=== PATIENT | female | born 1955 | race Caucasian/White ===

== ENCOUNTER → 2020-09-29 15:44 | Outpatient (CLI) | payer MEDICARE, SELFPAY ==
--- NOTE | ~2020-09-29 | XR_ITS ---
EXAMINATION: XR chest 2V DATE: 09/29/2020 16:08 INDICATION: Shortness of breath TECHNIQUE: Frontal and lateral views of the chest are obtained COMPARISON: None available FINDINGS: The lungs are free of acute opacities. There is no pleural effusion or pneumothorax. The ca rdiomediastinal silhouette is normal. There is moderate thoracic spondylosis. IMPRESSION: 1. No acute cardiopulmonary abnormality. Reviewed, dictated and finalized at location A.
== END ==
PROVIDERS: PCP Family Medicine Adolescent Medicine; Visit Provider Family Medicine Adolescent Medicine
DX: R06.00 Dyspnea, unspecified (principal)
CPT/HCPCS: 71046

== ENCOUNTER 2021-05-04 14:58 | Outpatient (CLI) | payer OTHER, SELFPAY ==
--- NOTE | 2021-05-05 13:39 | WPDPFTINT ---
PFT Procedure Performed PFT Procedure Performed Plethysmography (Lung Vol) Diffusing Cap (DLCO) Flow Vol Loop Spirometry w/o Bronchodil PFT Interpretation Lung volumes were measured with the body plethysmography method. Lung volumes are unremarkable. Spirometry shows normal expiratory flow rates and a normal FEV1 to FVC ratio of 80%. No post bronchodilator study was carried out. Lung diffusion capacity is within the normal range at 89% predicted. The flow volume loop is unremarkable. Impression: Lung volumes, spirometry, and lung diffusion capacity all within the normal range.
== END 2021-05-04 14:59 | disposition home or self-care (01) ==
PROVIDERS: PCP Family Medicine Adolescent Medicine; Visit Provider Family Medicine Adolescent Medicine
DX: R06.09 Other forms of dyspnea (principal)
CPT/HCPCS: 94375; 94726; 94729

== ENCOUNTER 2021-06-15 01:00 | Day surgery (SDC) | payer OTHER, SELFPAY ==
[2021-06-14 12:14] VITALS: BMI 29.0
[2021-06-15] VITALS (10 sets, daily range): BP systolic 119–156; BP diastolic 58–93; PULSE 38–79; RESP 12–18; TEMP 36–36.6; O2SAT 95–100; BMI 29.7
--- NOTE | ~2021-06-15 | XR_ITS ---
EXAMINATION: XR chest 2V 06/16/2021 08:44 INDICATION: Post pacemaker insertion PROCEDURE: 2 view chest COMPARISON: Comparison to multiple prior studies sequentially, with oldest reviewed study dated 11/2020. FINDINGS: The lungs are clear. Sequential pacemaker leads in expected position, unchanged. The cardio mediastinal silhouette is within normal limits. There are no pleural effusions. There is no pneumot horax suspected. IMPRESSION: 1: NO ACUTE CARDIOPULMONARY DISEASE. Reviewed, dictated and finalized at location A. E CLOTH FINISHER
--- NOTE | ~2021-06-15 | XR_ITS ---
XR chest 1V portable 06/15/2021 12:54 Indication: Pacemaker insertion Procedure: AP portable chest Comparison: 09/29/2020 Findings: Heart size normal. Shallow inspiration. No focal air space disease, pulmonary edema, pleura l effusion or suspected pneumothorax. Sequential pacemaker leads in the right atrium and right ventri angie respectively. No pneumothorax. No acute osseous abnormality. Impression: 1: No acute cardiopulmonary disease. Reviewed, dictated and finalized at location A. D ASSISTANT Impression: 1: No acute cardiopulmonary disease.
[2021-06-15 07:33] LABS: Anion Gap 2 mmol/L (8-16); Blood Urea Nitrogen 11 mg/dL (7-17); Calcium 9.5 mg/dL (8.4-10.2); Carbon Dioxide 31 mmol/L (22-30); Chloride 105 mmol/L (98-107); Estimated CRCL calculation 52 ml/min; Estimated Glomerular Filt Rate 50; Glucose 91 mg/dL (65-110); Potassium 3.8 mmol/L (3.4-5.0); Sodium 138 mmol/L (137-145)
[2021-06-15 07:35] LABS: INR 0.9; Prothrombin Time 12.5 Seconds (11.1-14.7)
[2021-06-15 07:42] LABS: Basophils Absolute Auto 0.1 K/mm3 (0.0-0.1); Basophils Percent Auto 0.7 % (0.2-1.2); Eosinophils Absolute Auto 0.2 K/mm3 (0-0.3); Eosinophils Percent Auto 1.9 % (0-4.4); Hematocrit 47.6 % (37.0-47.0); Hemoglobin 15.4 g/dL (12.0-15.0); Immature Granulocyte Absolute 0.03 K/mm3 (0.00-0.031); Immature Granulocyte Percent A 0.3 % (0-0.5); Lymphocytes Absolute Auto 2.87 K/mm3 (0.9-3.2); Lymphocytes Percent Auto 27.5 % (18.3-44.2); Mean Corpuscular HGB Conc 32.4 g/dl (32-36); Mean Corpuscular Hemoglobin 30.3 pg (26-34); Mean Corpuscular Volume 93.5 fl (80-100); Mean Platelet Volume 10.2 fl (7.4-10.4); Monocytes Absolute Auto 0.9 K/mm3 (0.1-0.6); Monocytes Percent Auto 8.1 % (2.6-8.5); Neutrophils Absolute Auto 6.4 K/mm3 (1.3-6.7); Neutrophils Percent Auto 61.5 % (45.5-73.1); Platelet Count Result 269 k/mm3 (150-375); Red Blood Count 5.09 M/mm3 (4.2-5.4); Red Cell Distribution Width 13.4 % (11.5-14.5); White Blood Count 10.5 K/mm3 (4.5-10.0)
--- NOTE | 2021-06-15 08:53 | PM.IMHP ---
H&P: HPI History of Present Illness Date/Time: 06/15/21 08:53 Chief Complaint: Symptomatic second-degree AV block Narrative: Enriqueta Orellana is a 65-year-old female with symptomatic second-degree AV block who is here for implantation of a permanent dual-chamber pacemaker. The patient has been having PRATT, dizziness and near syncope. She was seen by Dr. Reece recently found that she was in 2-1 AV block with heart rate in the 30s. She is not on any AV maria e blocking agents. She has normal left ventricular function with an ejection fraction is 75% and no significant valve disease. No known coronary disease. Father had a pacemaker. She is feeling well today with no fevers or infections. She is right-handed. She has been NPO. No allergies. No clavicular fracture. Review of Systems Constitutional: Constitutional: Reports lethargy and Reports weakness Eyes: Eyes: Reports no additional eye complaints ENT: Denies epistaxis Cardiovascular: Cardiovascular: Denies chest pain, Denies leg edema and Denies palpitations Respiratory: Respiratory: Reports dyspnea and Reports dyspnea on exertion Gastrointestinal: Gastrointestinal: Denies abdominal pain Genitourinary: Genitourinary: Denies hematuria Musculoskeletal: Musculoskeletal: Reports no additional musculoskeletal complaints Integumentary/Breasts: Skin/Breast: Denies rash Neurologic: Reports vertigo (Dizziness and near-syncope) Psychiatric: Psychiatric: Reports no additional psychiatric complaints [facility] Past Medical History Medical History (Updated 06/15/21 @ 08:58 by Jackie Denton MD) GERD (gastroesophageal reflux disease) Second degree AV block Surgical History Surgical History (Updated 06/15/21 @ 08:56 by Jackie Denton MD) H/O knee surgery History of Family History Family History (Updated 06/15/21 @ 08:56 by Jackie Denton MD) Father Pacemaker Marfan syndrome Social History Social History (Updated 06/15/21 @ 08:56 by Jackie Denton MD) Social History: Smoking status: Never smoker Living arrangements: with family Meds Home Medications and Allergies Home Medications Medication Instructions Recorded Confirmed Type pantoprazole 40 mg PO DAILY 06/14/21 06/14/21 History Allergies Allergy/AdvReac Type Severity Reaction Status Date / Time No Known Allergies Allergy Verified 06/14/21 12:14 Vital Signs Vital Signs - 24 hr 06/15/21 07:20 Temperature 97.4 F L Pulse Rate 38 L Respiratory Rate 12 Blood Pressure 153/82 H Pulse Oximetry 100 Exam Narrative: Pleasant middle-aged female complaining but no distress Const: General: comfortable and no acute distress HENMT: Mouth: Yes moist mucous membranes Eyes: EOM: EOMs intact bilaterally Neck: Neck: supple Resp: Effort & Inspection: normal respiratory effort Auscultation: clear to auscultation bilaterally Cardio: Rate: regular rate Rhythm: regular rhythm Heart sounds: no murmurs GI: GI Palp: Yes Soft to palpation and No Tenderness to palpation present (GI) Skin: General skin exam: normal color and no rashes or lesions noted Other: Skin over left prepectoral area is free of erythema or rash Neuro: Cognition (Neuro): normal cognition Speech: normal speech Extrem: General: no edema Psych: Mental Status: mental status grossly normal Affect: normal affect H&P: Results Labs Labs: Short CBC 06/15/21 Range/Units 07:17 WBC 10.5 H (4.5-10.0) K/mm3 Hgb 15.4 H (12.0-15.0) g/dL Hct 47.6 H (37.0-47.0) % Plt Count 269 (150-375) k/mm3 [facility] 06/15/21 07:17 Sodium 138 Potassium 3.8 Chloride 105 Carbon Dioxide 31 H BUN 11 Creatinine 1.10 H Glucose 91 Calcium 9.5 Assessment and Plan Assessment and plan (1) Second degree AV block: Code(s): I44.1 - Atrioventricular block, second degree Status: Acute Assessment and Plan: Symptomatic second-degree AV b
--- NOTE | 2021-06-15 08:59 | WPDMODSED ---
Moderate Sedation Note-Pt Data Patient Data Diagnosis: Symptomatic second-degree AV block Present Complaint: The patient has been having PRATT, dizziness and near syncope. She was seen by Dr. Reece recently found that she was in 2-1 AV block with heart rate in the 30s. She is not on any AV maria e blocking agents. She has normal left ventricular function with an ejection fraction is 75% and no significant valve disease. No known coronary disease. Father had a pacemaker. She is feeling well today with no fevers or infections. She is right-handed. She has been NPO. No allergies. No clavicular fracture. Procedure to be performed/Plan: Conscious sedation venogram Implantation of a permanent dual-chamber transvenous pacemaker Allergies Allergy/AdvReac Type Severity Reaction Status Date / Time No Known Allergies Allergy Verified 06/14/21 12:14 Home Medications Medication Instructions Recorded Confirmed Type pantoprazole 40 mg PO DAILY 06/14/21 06/14/21 History Sedation/Anesthesia: No previous sedation/anesthesia problems (including family history). [facility] Past Medical History Medical History (Updated 06/15/21 @ 08:58 by Jackie Denton MD) GERD (gastroesophageal reflux disease) Second degree AV block Surgical History Surgical History (Updated 06/15/21 @ 08:56 by Jackie Denton MD) H/O knee surgery History of Family History Family History (Updated 06/15/21 @ 08:56 by Jackie Denton MD) Father Pacemaker Marfan syndrome Social History Social History (Updated 06/15/21 @ 08:56 by Jackie Denton MD) Social History: Smoking status: Never smoker Living arrangements: with family Mod Sed Physical Exam Physical Exam Pre Procedural Exam: Normal: Appearance, Eyes, Ears, Nose, Neck, Throat, Airway, Lungs, Heart Size, Heart Rate, Heart Rhythm, Neuro Exam, Abdomen, Extremities and Skin Hours since solid foods: 12 Hours since liquid intake: 12 Mallampati Classification: class III Internal Medicine - PN: Obj Da Vital Signs Vital Signs: Vital Signs - 24 hr 06/15/21 07:20 Temperature 97.4 F L Pulse Rate 38 L Respiratory Rate 12 Blood Pressure 153/82 H Pulse Oximetry 100 Labs CBC & Chem 7: 06/15/21 07:17 06/15/21 07:17 Labs: Laboratory Results - last 24 hr 06/15/21 06/15/21 06/15/21 07:17 07:17 07:17 WBC 10.5 H RBC 5.09 Hgb 15.4 H Hct 47.6 H MCV 93.5 MCH 30.3 MCHC 32.4 RDW 13.4 Plt Count 269 MPV 10.2 Immature Gran % (Auto) 0.3 Neut % (Auto) 61.5 Lymph % (Auto) 27.5 Falls % (Auto) 8.1 Eos % (Auto) 1.9 Baso % (Auto) 0.7 Lymph # (Auto) 2.87 Falls # (Auto) 0.9 H Eos # (Auto) 0.2 Baso # (Auto) 0.1 Abs Immat Gran (auto) 0.03 Absolute Neuts (auto) 6.4 Absolute Nucleated RBC 0.0 Nucleated RBC % 0.0 PT 12.5 INR 0.9 Sodium 138 Potassium 3.8 Chloride 105 Carbon Dioxide 31 H Anion Gap 2 L BUN 11 Creatinine 1.10 H Estim Creat Clear Calc 52 Estimated GFR 50 L Glucose 91 Calcium 9.5 ASA Classification/Sedation ASA Classification/Sedation ASA Class: III Emergent: No Risks: Risks, benefits and alternatives explained and patient/family accepted plan for sedation. Patient re-evaluated immediately prior to sedation. Patient recalls that when she had apparently general anesthesia? With her C-sections it did not work well, and it took a long time for her to ?come out of it. ?
--- NOTE | 2021-06-15 11:12 | ECG_ITS ---
Measurements Intervals [place] Rate: 61 P: 242 CO: 247 QRS: -76 QRSD: 162 T: 85 QT: 506 QTc: 511 Interpretive Statements ELECTRONIC ATRIAL PACEMAKER ELECTRONIC VENTRICULAR PACEMAKER NO FURTHER INTERPRETATION IS POSSIBLE ATYPICAL ECG Electronically Signed On 06-15-2021 14:07:55 CARBURIZER by Korey Esquivel D.O.
--- NOTE | 2021-06-15 11:15 | PM.OP ---
Procedure Note - Brief Procedure Note - Brief Date of procedure: 06/15/21 Pre-op diagnosis: Symptomatic AV Block Status post dual chamber Biotronik pacemaker Post-op diagnosis: same Procedure performed: conscious sedation Venogram Placement of permanent dual-chamber pacemaker Description of procedure: uneventful placement of dual-chamber Biotronik pacemaker Anesthesia: local ( with conscious sedation) Surgeon: Jackie Denton MD Complications: No immediate complications Condition: stable Disposition: observation
--- NOTE | 2021-06-15 11:16 | W.PM.PROC2 ---
Procedure Note - Detailed Date of Procedure 06/15/21 Pre-op Diagnosis Symptomatic AV Block Post-op Diagnosis other (Status post dual-chamber pacemaker) Procedure Performed PROCEDURE PERFORMED: Conscious sedation Venogram Placement of a permanent dual-chamber pacemaker Surgeon Jackie Denton MD Anesthesia local Indications symptomatic second-degree AV block Description of Procedure HISTORY: Enriqueta Orellana is a 65-year-old female with symptomatic second-degree AV block who is here for implantation of a permanent dual-chamber pacemaker. The patient has been having PRATT, dizziness and near syncope. She was seen by Dr. Reece recently found that she was in 2-1 AV block with heart rate in the 30s. She is not on any AV maria e blocking agents. She has normal left ventricular function with an ejection fraction is 75% and no significant valve disease. No known coronary disease. Father had a pacemaker. She is feeling well today with no fevers or infections. She is right-handed. She has been NPO. No allergies. No clavicular fracture. SITE: Left prepectoral area MEDICATIONS GIVEN IN LAP MACHINE TENDER: Ancef 1 gram IV piggyback UNDERLYING RHYTHM: Second-degree AV block, heart rate in the 30s CONSCIOUS SEDATION: Assessment: The patient has no history of anesthesia problems. The patient's oropharynx is clear. The patient was deemed to be a good candidate for conscious sedation. The patient had continuous hemodynamic monitoring during the procedure. Start time: 930 Completion time: 1107 Total conscious sedation time: 96 minutes Medications: Versed 4 mg IV push, fentanyl 150 mcg IV push Trained observer: Erica Ríos RN Outcome: The patient tolerated the procedure well with no complications. PROCEDURE: After informed consent , the patient was brought to the chemical lab supervisor and the left prepectoral area was prepped and draped in usual fashion . The patient received preop antibiotic and conscious sedation . The left prepectoral area was anesthetized with lidocaine . A venogram was performed showing the course of the left subclavian vein,which was patent, and following the anticipated course. Next a skin incision was made and carried down to the prepectoral fascia. Hemostasis was obtained using electrocautery . The pacer pocket was formed. The left subclavian vein was easily accessed with the micropuncture technique, and a J-tip guide wire was passed into the inferior vena cava under fluoroscopic guidance . The needle was withdrawn . A 2nd wire was introduced in an identical fashion. A 6 Cambodian Cambodian safety sheath was passed over the lateral wire, the wire withdrawn, and the right ventricular lead was passed into the inferior vena cava under fluoroscopic guidance . The lead was then prolapsed through the tricuspid valve and advanced into the right ventricular apex. I attempted to find a suitable position on the septum but was unable to get good thresholds so placed the lead in the apex.bbWhen suitable sensing and pacing thresholds were obtained, it was screwed into place. No extra cardiac stimulation was obtained using 10 volts. The sheath was withdrawn. Next, another 6 Cambodian safety sheath was passed over the more medial wire, the wire withdrawn, and the right atrial lead was passed into the inferior vena cava under fluoroscopic guidance. Right atrial lead was then pulled back to the level of the right atrium and manipulated into the right atrial appendage . When suitable sensing and pacing thresholds were obtained , it was screwed into place . No extra cardiac stimulation was obtained using 10 volts. The sheath was withdrawn. Both leads were secured to the prepectoral fascia using 2-0 silk over their respective sleeves. The pocket was cleansed with antibiotic containing solution . The RV lead impedance then increase to 2000, so the RV lead was repositioned with excellent pacing sensing and impedance. The pulse generator w
--- NOTE | 2021-06-15 11:59 | SUR.PHASEII ---
1130-pt returned to room post pacemaker. Aquacel dressing to left chest. 12-lead EKG done at bedside. Awaiting PCXR.
--- NOTE | 2021-06-15 13:07 | SUR.PHASEII ---
PCXR DONE, IMMOBILIZER PLACED ON PTS LEFT ARM
--- NOTE | 2021-06-15 14:49 | SUR.PHASEII ---
PT WILL STAY OVERNIGHT EXTENDED RECOVERY. PT WILL BE TRANSFERRED TO PACU. PHASE II DONE AT 1400.
[2021-06-15] MEDS: HYDROcodone/acetaminophen (*CRX) 5-325 MG TABLET 1 TAB PO ×2 (16:00→21:52)
--- NOTE | 2021-06-15 16:42 | OBADM ---
This patient, Enriqueta Orellana, admitted to the OB room 2 Medical Room 249 for observation. Patient/family oriented to hospital policies and general routines including ID bracelet, bed and alarms, visiting hours, pain management, procedures, bathroom and other care routines, personal items, smoking policy, room service/diet, and visiting hours. Patient/Family are encouraged to report perceived risks to care and to ask questions if they do not understand what they are told or what they should do.
[2021-06-16] VITALS: BP 127/66; PULSE 68; PULSE 74; RESP 14; TEMP 36.4; O2SAT 98
[2021-06-16] MEDS: HYDROcodone/acetaminophen (*CRX) 5-325 MG TABLET 1 TAB PO ×2 (03:55→10:58)
[2021-06-16 04:00] VITALS: BP 136/58; PULSE 67; RESP 12; TEMP 36.1; O2SAT 95
[2021-06-16 08:00] VITALS: PULSE 77
[2021-06-16 10:04] VITALS: BP 148/80; PULSE 72; RESP 14; TEMP 36.4; O2SAT 96
[2021-06-16 12:00] VITALS: PULSE 77
--- NOTE | 2021-06-16 22:43 | PM.DS ---
DS: Admitting Diagnosis Discharge Date 06/16/21 Admitting Diagnosis Symptomatic second-degree AV block, symptomatic bradycardia DS: Discharge Diagnosis Discharge Diagnosis (1) S/P cardiac pacemaker procedure: Code(s): Z95.0 - Presence of cardiac pacemaker Status: Acute Assessment and Plan: Enriqueta Orellana is a 65-year-old female with symptomatic second-degree AV block who is here for implantation of a permanent dual-chamber pacemaker. The patient has been having PRATT, dizziness and near syncope. She was seen by Dr. Reece recently found that she was in 2-1 AV block with heart rate in the 30s. She is not on any AV maria e blocking agents. She has normal left ventricular function with an ejection fraction is 75% and no significant valve disease. No known coronary disease. Father had a pacemaker. The patient underwent uneventful implantation of a permanent dual-chamber Biotronik pacemaker on 06/15/2021. She a appeared pacemaker dependent and was kept overnight. Chest x-ray showed good lead positioning and no pneumothorax. Interrogation of the device showed good sensing and pacing thresholds. The patient was discharged for office follow-up in 1 week and was given detailed instruction on activity and incision care. She was provided weeks prescription for cephalexin as well.. DS: Summary Hospital Course Hospital Course: See above Status at Discharge Functional status at discharge: independent ambulation Time Spent with Patient Time attestation: Total time spent providing and/or coordinating discharge services: > 35 minutes Time spent: Greater than 30 minutes Exam Const: General: comfortable and no acute distress Eyes: General: appearance normal, both eyes and all related structures Chest: Chest palpation & inspection: normal inspection of the chest Other: Aquacel dressing dry and intact, no surrounding ecchymosis or hematoma. Resp: Effort & Inspection: normal respiratory effort Cardio: Rate: regular rate Rhythm: regular rhythm Heart sounds: no murmurs GI: Inspection: normal to inspection and non-distended Skin: General skin exam: no rashes or lesions noted Neuro: General: patient oriented x3 Cognition (Neuro): normal cognition Speech: normal speech Extrem: General: no edema Psych: Appearance: grossly normal and well kempt Mental Status: mental status grossly normal DS: Data Data Completed and Pending Completed studies during hospitalization: Chest x-ray showed good lead placement and no pneumothorax. Procedures/Treatments: Status post dual chamber Biotronik pacemaker implant on 06/15/2021 Discharge Plan Discharge Patient Disposition: Home, Self-Care Discharge Instructions: [facility] [address] [place] [address] DISCHARGE INSTRUCTIONS - POST PACEMAKER Activity 1. No driving until you are seen in the office for your incision check. 2. No lifting, pushing or pulling more than 5 pounds with affected arm for 1 MONTH 3. No lifting affected arm above shoulder height for 1 MONTH 4. Wear immobilizer/sling only if you are unable to remember the above activity restrictions. Recommend that it be worn at night. 5. You may shower AFTER you are seen for incision check on 06/24/2021 but no tub baths, swimming pool or hot tub for 1MONTH Wound Care 1. Do not attempt to remove the Aquacel dressing. Leave dressing undisturbed until incision check at the office visit. Keep dressing dry. 2. When you ar
== END 2021-06-16 14:48 | disposition home or self-care (01) ==
LOC: ANHCATHLAB 06:56 → ANHSUROVER 14:58 → ANH2MED 16:37
PROVIDERS: PCP Family Medicine Adolescent Medicine; Visit Provider Internal Medicine Cardiovascular Disease
PROC: 0JH606Z Insertion of Pacemaker, Dual Chamber into Chest Subcutaneous Tissue and Fascia, Open Approach (ICD-10-PCS; CPT 33208; principal; 2021-06-15 08:30)
DX: I44.1 Atrioventricular block, second degree (principal); K21.9 Gastro-esophageal reflux disease without esophagitis
CPT/HCPCS: 33208; 36415; 71045; 71046; 80048; 85025; 85610; 93005; A9270; C1779; C1785; C1894; J0690; J2250; J3010; J7040

== ENCOUNTER 2023-12-17 13:05 | Emergency (ER) | payer MEDICARE, SELFPAY ==
--- NOTE | ~2023-12-17 | XR_ITS ---
EXAMINATION: XR chest 2V DATE: 12/17/2023 14:14 INDICATION: Cough. TECHNIQUE: Frontal and lateral views of the chest were obtained. COMPARISON: Chest 2 views 06/16/2021 FINDINGS: There is no pneumonia, pleural effusion, or pneumothorax. The heart size is normal. There i s a left chest wall pacer with leads in the right atrium and right ventricle. IMPRESSION: 1. No acute cardiopulmonary disease. Reviewed, dictated and finalized at location E.
[2023-12-17 13:08] VITALS: BP 136/97; PULSE 88; RESP 17; TEMP 36.6; O2SAT 98
[2023-12-17 13:11] VITALS: O2SAT 98
[2023-12-17 13:51] LABS: Strep Group A RT-PCR NOT DETECTED (Negative)
--- NOTE | 2023-12-17 14:17 | ED.GENADULT ---
HPI - General Adult General Chief complaint: Upper Respiratory Infection Stated complaint: ?strep throat Time Seen by Provider: 12/17/23 13:49 History of Present Illness HPI narrative: 68-year-old female presents to the emergency department for evaluation of sore throat. Patient states she has had some postnasal drip that may be worsening her sore throat. Patient states she has also had some minor fatigue which she attributed to possible allergies. Patient states she does not like to take decongestant medications because they tend to give her heart palpitations. Patient was willing to have a strep test but declined the COVID and chest x-ray Related Data Allergies Allergy/AdvReac Type Severity Reaction Status Date / Time No Known Allergies Allergy Verified 12/17/23 13:13 Review of Systems Review of Systems: All systems reviewed & are unremarkable except as noted in HPI and below PMFSH Past Medical History Medical History (Updated 12/17/23 @ 14:55 by Everton Rawls MD) GERD (gastroesophageal reflux disease) Second degree AV block Surgical History Surgical History (Updated 06/16/21 @ 22:44 by Jackie Malone MD) H/O knee surgery History of S/P cardiac pacemaker procedure Family History Family History (Updated 06/15/21 @ 08:56 by Jackie Malone MD) Father Pacemaker Marfan syndrome Social History Social History (Updated 06/15/21 @ 08:56 by Jackie Malone MD) Social History: Smoking status: Never smoker Living arrangements: with family Exam Narrative: APPEARANCE: Well appearing, no pain, no distress, well-nourished. HEAD: normocephalic, atraumatic. EYES: PERRLA/EOMI, conjunctivae clear. NOSE: Normal no drainage EARS:TMS clear with good light reflex. THROAT: Pharynx clear, no exudate. NECK: Supple. No adenopathy, no masses. RESPIRATORY: Airway patent, respirations nonlabored. Clear to auscultation bilaterally, no rales, rhonchi, wheezing. CARDIOVASCULAR: Regular rate and rhythm without murmurs rubs or gallops. ABDOMINAL: Soft, nontender, nondistended, normal bowel sounds MUSCULOSKELETAL: Moves all extremities. Strength/ROM intact, No edema, No calf tenderness. NEURO: Alert. Cranial nerves II through XII intact. SKIN: Warm, dry. Normal Color Course Vital Signs Vital signs: Vital Signs Temperature 97.9 F 12/17/23 13:08 Pulse Rate 88 12/17/23 13:08 Respiratory Rate 17 12/17/23 13:08 Blood Pressure 136/97 H 12/17/23 13:08 Pulse Oximetry 98 12/17/23 13:08 Oxygen Delivery Room Air 12/17/23 13:08 Temperature 97.9 F 12/17/23 13:08 Pulse Rate 88 12/17/23 13:08 Respiratory Rate 17 12/17/23 13:08 Blood Pressure 136/97 H 12/17/23 13:08 Pulse Oximetry 98 12/17/23 13:11 Oxygen Delivery Room Air 12/17/23 13:11 Medical Decision Making MDM Narrative Medical decision making narrative: 68-year-old female presented to the emergency department for evaluation for sore throat. Patient was negative for group a strep. Chest x-ray shows no acute abnormality. Patient declined the COVID influenza RSV swab. Suspect viral etiology for symptoms. Patient was also updated on the treatment plan for symptomatic treatment. Differential Diagnosis Differential Diagnosis: COVID, RSV, influenza, strep throat, viral etiology, postnasal drip, seasonal allergies Vital Signs Vital Signs: Vital Signs Temperature 97.9 F 12/17/23 13:08 Pulse Rate 88 12/17/23 13:08 Respiratory Rate 17 12/17/23 13:08 Blood Pressure 136/97 H 12/17/23 13:08 Pulse Oximetry 98 12/17/23 13:08 Oxygen Delivery Room Air 12/17/23 13:08 Temperature 97.9 F 12/17/23 13:08 Pulse Rate 88 12/17/23 13:08 Respiratory Rate 17 12/17/23 13:08 Blood Pressure 136/97 H 12/17/23 13:08 Pulse Oximetry 98 12/17/23 13:11 Oxygen Delivery Room Air 12/17/23 13:11 Lab Data Lab results reviewed: Yes I reviewed the patient's lab
--- NOTE | 2023-12-17 14:18 | PC.NURSE ---
Pt refused Covid, Flu and RSV test, EDP aware.
== END 2023-12-17 15:01 | disposition home or self-care (01) ==
PROVIDERS: Student in an Organized Health Care Education/Training Program; Emergency Provider Emergency Medicine; PCP Family Medicine Adolescent Medicine
DX: J02.9 Acute pharyngitis, unspecified (principal); K21.9 Gastro-esophageal reflux disease without esophagitis; Z95.0 Presence of cardiac pacemaker
CPT/HCPCS: 71046; 87651; 99283